=== PATIENT | female | born 1955 | race African-American/Black ===

== ENCOUNTER 2017-10-29 18:30 | Inpatient (IN) | payer MEDICAID, OTHER ==
[~2017-10-29] VITALS: Ht 149.9 cm; Wt 58.8 kg
[2017-10-29] MEDS ORDERED: SODIUM CHLORIDE 0.9% 1,000 ML IV ONE (21:05)
[2017-10-29] MEDS ORDERED: MORPHINE SULFATE 2 MG/ML CPJ (NOT FOR IM USE) IV ONE (21:30)
[2017-10-29 21:34] LABS: BASOPHILS % 0.4 % (0.0-2.0); HEMATOCRIT. 31.1 % (36.0-48.0); HEMOGLOBIN. 9.5 g/dL (12.0-16.0); LYMPHOCYTES % 15.6 % (20.0-50.0); MEAN CORPUSCULAR HEMOGLOBIN 24.3 pg (28.0-32.0); MEAN CORPUSCULAR VOLUME 79.6 fL (81.0-99.0); MEAN PLATELET VOLUME 7.2 fl (7.4-10.4); MONOCYTES % 5.7 % (2.0-8.0); NEUTROPHILS % 78.3 % (40.0-76.0); PLATELET 787 x1000/uL (130-400); RED BLOOD CELL COUNT 3.91 mill/uL (4.2-5.4); RED CELL DISTRIBUTION WIDTH 15.2 % (11.6-14.6)
[2017-10-29 21:39] LABS: CHLORIDE 98 mEq/L (98-107)
[2017-10-29 21:40] LABS: INR 1.1; PARTIAL THROMBOPLASTIN TIME 30.2 sec (23.4-31.0); PROTHROMBIN TIME 11.7 sec (9.4-11.6)
[2017-10-29 21:47] LABS: TROPONIN I < 0.02 ng/mL (0.00-0.04)
[2017-10-29 21:48] LABS: CREATINE KINASE MB FRACTION 0.5 ng/mL (0.5-3.6)
[2017-10-29] MEDS ORDERED: MORPHINE SULFATE 4 MG/ML CPJ (NOT FOR IM USE) IV NR (22:00)
[2017-10-29] MEDS ORDERED: ASPIRIN 325MG EC TABLET PO ONE (23:15)
[2017-10-30] MEDS ORDERED: HYDROCODONE/ACETAMINOPHEN 5/325MG TABLET PO PRN (00:30)
[2017-10-30] MEDS ORDERED: IPRATROPIUM/ALBUTEROL 0.5-3(2.5)MG/3ML NEB INH PRN (00:30)
[2017-10-30] MEDS ORDERED: ONDANSETRON HCL 4MG/2ML VIAL IV PRN (00:30)
[2017-10-30] MEDS ORDERED: CLONIDINE 0.1MG TABLET PO PRN (00:30)
[2017-10-30] MEDS ORDERED: MAGNESIUM/ALUMINUM HYDROXIDE/SIMETHICONE 30ML UDC PO PRN (00:30)
[2017-10-30] MEDS ORDERED: ACETAMINOPHEN 325MG TABLET PO PRN (00:30)
[2017-10-30] MEDS ORDERED: DOCUSATE SODIUM 100MG CAPSULE PO PRN (00:30)
[2017-10-30 03:00] LABS: CHLORIDE 101 mEq/L (98-107)
[2017-10-30 03:25] VITALS: BP 134/68
[2017-10-30] MEDS ORDERED: DEXTROSE 50% WATER 50ML SYRINGE IV PRN (05:45)
[2017-10-30] MEDS: SODIUM CHLORIDE 0.9% 1,000 ML IV SCH ×2 (05:59→22:12)
[2017-10-30] MEDS: BLOOD SUGAR DIAGNOSTIC STRIP TEST SCH ×4 (06:10→22:02)
[2017-10-30] MEDS: INSULIN LISPRO 100 UNITS/ML SUBCUT SCH ×4 (06:10→22:16)
[2017-10-30 08:00] VITALS: BP_SYST 128; BP_SYST 132; BP_SYST 142; BP_SYST 144; BP_DIAS 66; BP_DIAS 73; BP_DIAS 78
[2017-10-30] MEDS: ENOXAPARIN 40MG/0.4ML SYR SUBCUT SCH (09:18)
[2017-10-30] MEDS: ASPIRIN 81MG EC TABLET PO SCH (09:18)
[2017-10-30] MEDS ORDERED: INFLUENZA VIRUS VACCINE 0.5ML SYR IM ONE (10:00)
[2017-10-30] MEDS ORDERED: PNEUMOCOCCAL 23-VAL P-SAC VAC 0.5 ML IM ONE (11:00)
[2017-10-30 13:05] LABS: BASOPHILS % 0.5 % (0.0-2.0); EOSINOPHILS % 0.2 % (0.0-5.0); HEMOGLOBIN. 8.5 g/dL (12.0-16.0); LYMPHOCYTES % 22.6 % (20.0-50.0); MEAN CORPUSCULAR HEMOGLOBIN 24.6 pg (28.0-32.0); MEAN CORPUSCULAR VOLUME 77.8 fL (81.0-99.0); MEAN PLATELET VOLUME 7.2 fl (7.4-10.4); MONOCYTES % 6.6 % (2.0-8.0); NEUTROPHILS % 70.1 % (40.0-76.0); PLATELET 837 x1000/uL (130-400); RED BLOOD CELL COUNT 3.47 mill/uL (4.2-5.4); RED CELL DISTRIBUTION WIDTH 15.5 % (11.6-14.6)
[2017-10-30 14:06] LABS: CREATINE KINASE 46 IU/L (26-192); CREATINE KINASE MB FRACTION 0.5 ng/mL (0.5-3.6); HDL CHOLESTEROL 31 mg/dL (40-59); LDL CHOLESTEROL 94 mg/dL (5-100); TROPONIN I < 0.02 ng/mL (0.00-0.04)
[2017-10-30 16:00] VITALS: BP 118/62
[2017-10-30 17:07] LABS: CLARITY URINE CLEAR (CLEAR); COLOR URINE DARK YELLOW (YELLOW); KETONES URINE 3+ (NEGATIVE); LEUKOCYTE ESTERASE URINE 2+ (NEGATIVE); NITRITE URINE NEGATIVE (NEGATIVE); OCCULT BLOOD URINE 1+ (NEGATIVE); PH URINE 5.5 (4.5-8.0); PROTEIN URINE TRACE (NEGATIVE); SPECIFIC GRAVITY URINE 1.022 (1.005-1.030)
[2017-10-30 17:17] LABS: *AMPHETAMINES SCREEN URINE NEGATIVE (NEGATIVE); *BARBITURATES SCREEN URINE NEGATIVE (NEGATIVE); *BENZODIAZEPINES SCREEN URINE NEGATIVE (NEGATIVE); *COCAINE SCREEN URINE NEGATIVE (NEGATIVE); CANNABINOID URINE SCREEN NEGATIVE (NEGATIVE); METHADONE URINE SCREEN NEGATIVE (NEGATIVE); OPIATES URINE SCREEN PRESUMTIVE POSITIVE (NEGATIVE); PHENCYCLIDINE URINE SCREEN NEGATIVE (NEGATIVE)
[2017-10-30 20:00] VITALS: BP 128/62
[2017-10-31] VITALS: BP 117/57
[2017-10-31 04:57] VITALS: BP 112/64
[2017-10-31] MEDS: INSULIN LISPRO 100 UNITS/ML SUBCUT SCH ×3 (07:15→17:15)
[2017-10-31] MEDS: BLOOD SUGAR DIAGNOSTIC STRIP TEST SCH ×3 (07:25→17:33)
[2017-10-31] MEDS: SODIUM CHLORIDE 0.9% 1,000 ML IV SCH (07:40)
[2017-10-31 08:00] VITALS: BP 122/58
[2017-10-31 08:02] LABS: BASOPHILS % 0.9 % (0.0-2.0); EOSINOPHILS % 1.1 % (0.0-5.0); HEMATOCRIT. 26.2 % (36.0-48.0); HEMOGLOBIN. 8.3 g/dL (12.0-16.0); LYMPHOCYTES % 30.7 % (20.0-50.0); MEAN CORPUSCULAR HEMOGLOBIN 24.4 pg (28.0-32.0); MEAN CORPUSCULAR VOLUME 76.9 fL (81.0-99.0); MEAN PLATELET VOLUME 7.3 fl (7.4-10.4); MONOCYTES % 7.7 % (2.0-8.0); NEUTROPHILS % 59.6 % (40.0-76.0); PLATELET 876 x1000/uL (130-400); RED BLOOD CELL COUNT 3.41 mill/uL (4.2-5.4); RED CELL DISTRIBUTION WIDTH 15.3 % (11.6-14.6)
[2017-10-31] MEDS: ENOXAPARIN 40MG/0.4ML SYR SUBCUT SCH (08:27)
[2017-10-31] MEDS: ASPIRIN 81MG EC TABLET PO SCH (08:27)
[2017-10-31 08:32] LABS: CHLORIDE 105 mEq/L (98-107)
[2017-10-31] MEDS ORDERED: IOHEXOL-350 100 ML BOTTLE ONE (11:11)
[2017-10-31 12:00] VITALS: BP 136/70
[2017-10-31 16:00] VITALS: BP 134/64
[2017-10-31 17:53] VITALS: BP 134/64
== END 2017-10-31 18:31 | disposition home or self-care (01) | DRG 48 ==
LOC: ER 18:30 → 5WST 23:28 → EDBEDREQ 23:30 → ENRESERV 10-30 02:34
PROVIDERS: ADMIT Internal Medicine; ATTEND Internal Medicine
DX: G90.8 Other disorders of autonomic nervous system (principal); I27.20 Pulmonary hypertension, unspecified; E46 Unspecified protein-calorie malnutrition; I11.9 Hypertensive heart disease without heart failure; E87.1 Hypo-osmolality and hyponatremia; D64.9 Anemia, unspecified; F79 Unspecified intellectual disabilities; R73.9 Hyperglycemia, unspecified; R94.31 Abnormal electrocardiogram [ECG] [EKG]; N85.9 Noninflammatory disorder of uterus, unspecified; N39.0 Urinary tract infection, site not specified; Z85.42 Personal history of malignant neoplasm of other parts of uterus; Z86.73 Personal history of transient ischemic attack (TIA), and cerebral infarction without residual deficits; Z68.26 Body mass index [BMI] 26.0-26.9, adult
CPT/HCPCS: 36415; 70450; 70551; 71045; 71275; 72100; 80048; 80053; 80061; 80305; 81003; 82550; 82553; 82962; 83735; 84443; 84484; 85025; 85379; 85610; 85730; 90686; 90732; 93005; 93306; 93880; 96361; 96374; 99285; J1650; J1815; J2270; J7030; Q9967